=== PATIENT | female | born 1970 | race Caucasian/White ===

== ENCOUNTER 2019-02-27 01:25 | Emergency (ER) | payer OTHER ==
[~2019-02-27] VITALS: Ht 172.7 cm; Wt 80.0 kg
[2019-02-27] MEDS ORDERED: SODIUM BICARBONATE 8.4% INJ 50MEQ 50 ML VIAL ONE (01:26)
[2019-02-27] MEDS ORDERED: SODIUM BICARBONATE 4.2% INJ 10 ML SYRINGE ONE (01:26)
[2019-02-27] MEDS ORDERED: PROPOFOL 200 MG/20 ML VIAL ONE (01:26)
[2019-02-27] MEDS ORDERED: EPINEPHrine 1MG/10ML SYRINGE 1.5IN ONE (01:26)
[2019-02-27] MEDS ORDERED: MAGNESIUM SULFATE 1GM/2ML (8MEQ/2ML) VIAL (J3475) ONE (01:26)
[2019-02-27] MEDS ORDERED: AMIODARONE 150MG/3ML INJ (J0282) ONE (01:26)
[2019-02-27] MEDS ORDERED: SUCCINYLCHOLINE 100 MG/5 ML SYRINGE (J0330) ONE (01:26)
[2019-02-27] MEDS ORDERED: AMIODARONE HCL 360 MG/200 ML PREMIXED BAG (NEXTERONE) As Ordered ONE (01:41)
[2019-02-27] MEDS ORDERED: PROPOFOL 1,000 MG/100 ML VIAL As Ordered ONE ×2 (02:07→03:47)
[2019-02-27 02:12] LABS: HEMOGLOBIN 13.6 g/dl (12.0-15.5); MEAN CORPUSCULAR HEMOGLOBIN 29.2 pg (27.0-33.0); MEAN CORPUSCULAR HGB CONC 30.9 g/dl (32.0-36.5); MEAN CORPUSCULAR VOLUME 94.6 fl (80.0-96.0); PLATELET COUNT, AUTOMATED 239 10^3/uL (150-450); RED BLOOD COUNT 4.65 10^6/uL (4.00-5.40)
[2019-02-27 02:13] LABS: WHITE BLOOD COUNT 11.1 10^3/uL (4.0-10.0)
[2019-02-27] MEDS ORDERED: NS 500 ML IV ONE (02:15)
[2019-02-27 02:26] LABS: ABG BASE EXCESS -11.3 (-2.0-2.0); ABG HCO3 15.5 MEQ/L (22.0-26.0); ABG O2 SATURATION 99.7 % (95.0-99.0); ABG PARTIAL PRESSURE CO2 38.1 mmHg (35.0-45.0); ABG PARTIAL PRESSURE O2 351.4 mmHg (75.0-100.0); ABG STANDARD HCO3 15.7 MEQ/L (22.0-26.0); ABG TOTAL CO2 16.7 MEQ/L (22.0-29.0)
[2019-02-27 02:27] LABS: ABG pH (ARTERIAL) 7.228 UNITS (7.350-7.450)
[2019-02-27 02:29] LABS: BLOOD UREA NITROGEN 14 MG/DL (7-18); CALCIUM LEVEL 8.8 MG/DL (8.5-10.1); CARBON DIOXIDE LEVEL 25 MEQ/L (21-32); CHLORIDE LEVEL 108 MEQ/L (98-107); CPK CREATINE PHOSPHOKINASE 138 U/L (26-192); CREATININE FOR GFR 0.91 MG/DL (0.55-1.30); GLOMERULAR FILTRATION RATE > 60.0 (>58); GLUCOSE, FASTING 164 MG/DL (70-100); MB/CK RELATIVE INDEX 2.97 (< OR =4); POTASSIUM SERUM 4.4 MEQ/L (3.5-5.1); SODIUM LEVEL 144 MEQ/L (136-145); TROPONIN I 1.02 NG/ML (< 0.10)
[2019-02-27] MEDS ORDERED: HEPARIN DRIP 25,000 UNITS in APPROPRIATE DILUENT 1 EA IV SCH (02:29)
[2019-02-27] MEDS ORDERED: HEPARIN SOD (PORCINE) 5000 UNITS/ML VIAL IV ONE (02:30)
[2019-02-27 02:38] LABS: ATYPICAL LYMPH 14 % (0-5); EOSINOPHILS 1 % (0-5); LYMPHOCYTES 81 % (16-52); MONOCYTES 2 % (0-8); NEUTROPHILS 2 % (35-75)
[2019-02-27 02:39] LABS: HYPOCHROMASIA 1+; PLATELET CLUMPS SMALL AMT; PLATELET ESTIMATE NORMAL (NORMAL)
[2019-02-27] MEDS ORDERED: ASPIRIN 325 MG TAB XX ONE (02:45)
[2019-02-27 03:03] VITALS: BP 90/53
[2019-02-27] MEDS ORDERED: AMIODARONE HCL 150 MG in APPROPRIATE DILUENT 1 EA IV ONE (03:15)
[2019-02-27] MEDS ORDERED: NOREPINEPHRINE BITARTRATE 8 MG in D5W 492 ML IV SCH (03:15)
[2019-02-27] MEDS ORDERED: NALOXONE INJ 2 MG/2 ML SYRINGE (J2310) As Ordered ONE (04:58)
--- NOTE | 2019-02-27 06:01 | ECGEPIP ---
Stationary ECG Study [facility] - ED Test Date: 2019-02-27 Pat Name: NO MORGAN Department: Room: - Gender: F [employer] Operator: : [id number] Requested By: ALBERTO SPEARS Order Number: [id number] Reading MD: Kameron Sotomayor Measurements Intervals [place] Rate: 78 P: 67 IA: 151 QRS: 69 QRSD: 138 T: 57 QT: 426 QTc: 486 Interpretive Statements SINUS RHYTHM RIGHT BUNDLE BRANCH BLOCK MARKED ST ELEVATION, CONSIDER ANTEROSEPTAL INJURY ACUTE [place] Electronically Signed On 02-27-2019 6:00:44 EDT by Kameron Sotomayor
--- NOTE | 2019-02-27 06:14 | REP ---
Clinical: Acute chest pain Comparison: 10/30/2016. Findings: Endotracheal tube in satisfactory position approximately 3.5 cm above the carmen. Right IJ line with tip in the SVC. Cardiac silhouette is normal. Diffuse bilateral opacities including scattered air bronchograms are suggested (right greater than left). No effusion. No pneumothorax. Lung volumes are symmetric and normal. Skeletal structures are intact. Impression: Endotracheal tube and right IJ line in satisfactory position. Multifocal pneumonitis (right greater than left) suggested. Electronically Signed by Miko Henderson MD 02/27/2019 06:06 A
--- NOTE | 2019-02-27 06:16 | REP ---
Clinical: Nasogastric tube placement. Comparison: 02/27/2019 at 02:09 a.m. Findings: Nasogastric tube courses below left hemidiaphragm in satisfactory position. Endotracheal tube approximately 2 cm above the carmen. Right IJ line with tip in the SVC/right atrium. Diffuse coarsened interstitial markings with bilateral infiltrates including scattered air bronchograms (right greater left) consistent with multifocal pneumonia / pneumonitis. Lung volumes symmetric. No effusion. No pneumothorax. Skeletal structures intact. Impression: 1. Lines and tubes in satisfactory position. 2. Bilateral opacities consistent with multifocal pneumonia / pneumonitis. Electronically Signed by Miko Henderson MD 02/27/2019 06:08 A
== END 2019-02-27 03:43 | disposition short-term general hospital (02) ==
LOC: EDBD 01:25 → MERGE 01:25 → M ED 01:25
DX: I21.3 ST elevation (STEMI) myocardial infarction of unspecified site (principal); I46.9 Cardiac arrest, cause unspecified; J96.90 Respiratory failure, unspecified, unspecified whether with hypoxia or hypercapnia
CPT/HCPCS: 31500; 36415; 36556; 71045; 80048; 82550; 82553; 82803; 83605; 84484; 85025; 87040; 92950; 93005; 93041; 96374; 96375; 99291; J0282; J0330; J3475

== ENCOUNTER → 2019-03-21 | Outpatient (CLI) | payer OTHER ==
[2019-03-21 13:38] LABS: CALCIUM LEVEL 9.4 MG/DL (8.5-10.1); CHOLESTEROL RISK RATIO 3.939 (<5); CREATININE FOR GFR 1.15 MG/DL (0.55-1.30); GLOMERULAR FILTRATION RATE 53.6 (>58); POTASSIUM SERUM 4.9 MEQ/L (3.5-5.1)
[2019-03-21 14:35] LABS: HEMOGLOBIN A1c 6.2 %
== END ==
LOC: M WUC 09:08
PROVIDERS: ATTEND Physician Assistant
DX: Z13.1 Encounter for screening for diabetes mellitus (principal); Z13.220 Encounter for screening for lipoid disorders

== ENCOUNTER → 2019-10-12 | Outpatient (CLI) | payer OTHER ==
[2019-10-12 13:08] LABS: BLOOD UREA NITROGEN 13 MG/DL (7-18); CALCIUM LEVEL 9.5 MG/DL (8.5-10.1); CARBON DIOXIDE LEVEL 30 MEQ/L (21-32); CHLORIDE LEVEL 108 MEQ/L (98-107); CREATININE FOR GFR 0.97 MG/DL (0.55-1.30); GLOMERULAR FILTRATION RATE > 60.0 (>58); GLUCOSE, FASTING 106 MG/DL (70-100); POTASSIUM SERUM 4.9 MEQ/L (3.5-5.1); SODIUM LEVEL 143 MEQ/L (136-145)
== END ==
LOC: M WUC 09:58
PROVIDERS: ATTEND Family Medicine
DX: I10 Essential (primary) hypertension (principal)

== ENCOUNTER → 2020-04-11 | Outpatient (CLI) | payer OTHER ==
[2020-04-11 19:53] LABS: BLOOD UREA NITROGEN 18 MG/DL (7-18); CARBON DIOXIDE LEVEL 31 MEQ/L (21-32); CHLORIDE LEVEL 104 MEQ/L (98-107); CREATININE FOR GFR 0.96 MG/DL (0.55-1.30); GLOMERULAR FILTRATION RATE > 60.0 (>58); GLUCOSE, FASTING 107 MG/DL (70-100); POTASSIUM SERUM 4.4 MEQ/L (3.5-5.1); SODIUM LEVEL 139 MEQ/L (136-145)
[2020-04-11 20:08] LABS: HEMOGLOBIN A1c 6.3 %
== END ==
LOC: M WUC 15:27
PROVIDERS: ATTEND Family Medicine
DX: I10 Essential (primary) hypertension (principal)

== ENCOUNTER → 2020-04-11 | Outpatient (CLI) | payer OTHER ==
[2020-04-11 19:51] LABS: ALT/SGPT 44 U/L (12-78); BILIRUBIN,TOTAL 0.3 MG/DL (0.2-1.0); BLOOD UREA NITROGEN 18 MG/DL (7-18); CALCIUM LEVEL 9.8 MG/DL (8.5-10.1); CARBON DIOXIDE LEVEL 32 MEQ/L (21-32); CHLORIDE LEVEL 104 MEQ/L (98-107); CHOLESTEROL LEVEL 138 MG/DL (<200); CHOLESTEROL RISK RATIO 3.833 (<5); GLOMERULAR FILTRATION RATE > 60.0 (>58); GLUCOSE, FASTING 105 MG/DL (70-100); HDL CHOLESTEROL 36 MG/DL (>40); LDL CHOLESTEROL 28 MG/DL (<100); NON-HDL-C 102 MG/DL; POTASSIUM SERUM 4.5 MEQ/L (3.5-5.1); SODIUM LEVEL 141 MEQ/L (136-145); TOTAL PROTEIN 7.4 GM/DL (6.4-8.2); TRIGLYCERIDES LEVEL 368 MG/DL (<150)
== END ==
LOC: M WUC 15:30
PROVIDERS: ATTEND Nurse Practitioner Family
DX: I21.02 ST elevation (STEMI) myocardial infarction involving left anterior descending coronary artery (principal)

== ENCOUNTER → 2021-04-01 | Outpatient (CLI) | payer OTHER ==
[2021-04-01 17:01] LABS: ALBUMIN 3.9 GM/DL (3.2-5.2); ALT/SGPT 68 U/L (12-78); BILIRUBIN,TOTAL 0.4 MG/DL (0.2-1.0); BLOOD UREA NITROGEN 14 MG/DL (7-18); CALCIUM LEVEL 9.8 MG/DL (8.5-10.1); CARBON DIOXIDE LEVEL 29 MEQ/L (21-32); CHLORIDE LEVEL 106 MEQ/L (98-107); CHOLESTEROL LEVEL 133 MG/DL (<200); CHOLESTEROL RISK RATIO 3.325 (<5); CREATININE FOR GFR 0.88 MG/DL (0.55-1.30); GLOMERULAR FILTRATION RATE > 60.0 (>51); GLUCOSE, FASTING 89 MG/DL (70-100); HDL CHOLESTEROL 40 MG/DL (>40); LDL CHOLESTEROL 56 MG/DL (<100); NON-HDL-C 93 MG/DL; SODIUM LEVEL 141 MEQ/L (136-145); TOTAL PROTEIN 7.5 GM/DL (6.4-8.2); TRIGLYCERIDES LEVEL 184 MG/DL (<150)
== END ==
LOC: M WUC 14:25
PROVIDERS: ATTEND Nurse Practitioner Family
DX: I25.10 Atherosclerotic heart disease of native coronary artery without angina pectoris (principal)

== ENCOUNTER → 2021-04-01 | Outpatient (CLI) | payer OTHER | LOC: M WUC 14:22 | PROVIDERS: ATTEND Family Medicine | DX: R73.03 Prediabetes (principal) ==

== ENCOUNTER → 2022-01-14 | Outpatient (CLI) | payer OTHER ==
[2022-01-14 20:47] LABS: ALBUMIN 4.2 GM/DL (3.2-5.2); ALT/SGPT 64 U/L (12-78); BILIRUBIN,TOTAL 0.4 MG/DL (0.2-1.0); BLOOD UREA NITROGEN 13 MG/DL (7-18); CALCIUM LEVEL 9.9 MG/DL (8.5-10.1); CARBON DIOXIDE LEVEL 32 MEQ/L (21-32); CHLORIDE LEVEL 105 MEQ/L (98-107); CHOLESTEROL LEVEL 144 MG/DL (<200); CHOLESTEROL RISK RATIO 3.428 (<5); CREATININE FOR GFR 0.98 MG/DL (0.55-1.30); GLOMERULAR FILTRATION RATE > 60.0 (>51); GLUCOSE, FASTING 93 MG/DL (70-100); HDL CHOLESTEROL 42 MG/DL (>40); LDL CHOLESTEROL 61 MG/DL (<100); NON-HDL-C 102 MG/DL; POTASSIUM SERUM 4.8 MEQ/L (3.5-5.1); SODIUM LEVEL 141 MEQ/L (136-145); TOTAL PROTEIN 7.8 GM/DL (6.4-8.2); TRIGLYCERIDES LEVEL 207 MG/DL (<150)
== END ==
LOC: M WUC 15:23
PROVIDERS: ATTEND Student in an Organized Health Care Education/Training Program
DX: I25.2 Old myocardial infarction (principal); I10 Essential (primary) hypertension; R73.03 Prediabetes

== ENCOUNTER 2023-08-02 14:45 | Emergency (ER) | payer OTHER ==
[~2023-08-02] VITALS: Ht 172.7 cm; Wt 81.8 kg
[2023-08-02] MEDS ORDERED: NITR0.4S14 (15:15)
[2023-08-02] MEDS ORDERED: METO1TAB32 (15:15)
[2023-08-02] MEDS ORDERED: LISI2.5T9 (15:15)
[2023-08-02] MEDS ORDERED: ATOR40TA75 (15:15)
[2023-08-02] MEDS ORDERED: FURO20TA2 (15:15)
[2023-08-02] MEDS ORDERED: ASPI81CH48 (15:15)
[2023-08-02] MEDS ORDERED: METF-838 (15:15)
[2023-08-02] MEDS ORDERED: APIXABAN 5 MG TAB (ELIQUIS) PO ONE (19:10)
[2023-08-02] MEDS ORDERED: ELIQ5TAB PO (19:15)
[2023-08-02 19:21] VITALS: BP 135/65; TEMP 97.7; O2SAT 98
== END 2023-08-02 19:30 | disposition home or self-care (01) ==
LOC: M ED 14:45
DX: I82.402 Acute embolism and thrombosis of unspecified deep veins of left lower extremity (principal); I25.10 Atherosclerotic heart disease of native coronary artery without angina pectoris; E10.9 Type 1 diabetes mellitus without complications; I10 Essential (primary) hypertension; E78.5 Hyperlipidemia, unspecified; Z87.442 Personal history of urinary calculi; Z95.1 Presence of aortocoronary bypass graft; Z95.5 Presence of coronary angioplasty implant and graft; Z87.891 Personal history of nicotine dependence; Z88.2 Allergy status to sulfonamides